=== PATIENT | female | born 1960 | race African-American/Black ===

== ENCOUNTER 2020-04-29 13:40 | Observation (INO) | payer OTHER, SELFPAY ==
[2020-04-29 16:02] LABS: Absolute Lymphocytes (CBC) 2.3 K/uL (0.7-4.9); Basophils % 0.8 % (0-1.3); Hematocrit 37.5 % (36.0-45.0); Lymphocytes % 34.1 % (15.3-44.8); MPV 7.8 fL (7.6-11.3); RBC Red Blood Cell Count 4.45 M/uL (3.86-4.86)
[2020-04-29 16:09] LABS: Protime INR 1.15
--- NOTE | 2020-04-29 16:23 | RAD REPORT ---
EXAM DESCRIPTION: USExtrem Venous W Compress Bil04/29/2020 2:41 pm CLINICAL HISTORY: Leg swelling COMPARISON: none FINDINGS: The common femoral, superficial femoral, popliteal and posterior tibial veins bilaterally are compressible and demonstrate augmentation. Doppler demonstrates good flow. IMPRESSION: No evidence of deep venous thrombosis involving either lower extremity. 4 centimeter left Avila's cyst
[2020-04-29 16:35] LABS: ALT/SGPT 24 U/L (12-78); AST/SGOT 22 U/L (15-37); Albumin 3.5 g/dL (3.4-5.0); Alkaline Phosphatase 110 U/L (45-117); BUN Blood Urea Nitrogen 18 mg/dL (7-18); Bicarbonate 27 mmol/L (21-32); Bilirubin Direct < 0.1 mg/dL (0-0.2); Bilirubin Total 0.3 mg/dL (0.2-1.0); Glucose Level 93 mg/dL (74-106); Magnesium 2.3 mg/dL (1.8-2.4); NT PRO-BNP 49 pg/mL (<125); Potassium 3.5 mmol/L (3.5-5.1); Protein, Total 8.1 g/dL (6.4-8.2); Sodium Level 142 mmol/L (136-145); Troponin (Emerg Dept Use Only) < 0.02 ng/mL (0.0-0.045)
[2020-04-29] MEDS ORDERED: FUROSEMIDE 20 MG/ 2ML VIAL ONE (17:23)
--- NOTE | 2020-04-29 17:41 | RAD REPORT ---
EXAM DESCRIPTION: Laisha Single View04/29/2020 2:50 pm CLINICAL HISTORY: Shortness of breath COMPARISON: none FINDINGS: The lungs appear clear of acute infiltrate. The heart is normal size. 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
[2020-04-29] MEDS ORDERED: ONDANSETRON 4 MG/2 ML VIAL ONE ×2 (17:55→20:04)
--- NOTE | 2020-04-29 18:03 | RAD REPORT ---
EXAM DESCRIPTION: CT - Chest For Pe Angio - 04/29/2020 5:49 pm CLINICAL HISTORY: sob COMPARISON: None. TECHNIQUE: Dynamically enhanced axial 3 mm thick images of the chest were obtained during administra tion of <100> mL Isovue 370 IV contrast. Coronal and oblique reconstruction images were generated and reviewed. Exam utilizes a protocol for optimal evaluation of pulmonary arterial tree. Maximum intensity projections 3D imaging was utilized All CT scans are performed using dose optimization technique as appropriate and may include automated exposure control or mA/KV adjustment according to patient size. FINDINGS: A pulmonary embolus is not seen. A thoracic aortic aneurysm is not noted. A pleural effusion is not seen. A pericardial effusion is not seen. A lung consolidation is not present. right mastectomy IMPRESSION: Negative for a pulmonary embolism.
[2020-04-29 18:34] LABS: Urine Bacteria 20-50 /HPF (<20); Urine RBC <5 /HPF (NONE SEEN)
[2020-04-29 18:35] LABS: Urine Blood NEGATIVE (NEG); Urine Glucose NEGATIVE (NEG); Urine Protein NEGATIVE (NEG); Urine Specific Gravity 1.025 (1.005-1.030)
--- NOTE | 2020-04-29 18:45 | EDPHYS ---
Physician Documentation [facility] Name: Dorota Mota Age: 60 yrs Sex: Female : 1960 Arrival Date: 04/29/2020 Time: 13:41 Bed 8 Private MD: ED Physician Vaughn Ziegler HPI: 04/29 13:50 This 60 yrs old Black Female presents to ER via EMS with complaints of Shortness Of cp Breath, Dizziness, General Weakness. 13:50 The patient has shortness of breath at rest. cp 13:50 Onset: The symptoms/episode began/occurred 2 day(s) ago. Duration: The symptoms are cp continuous, and are steadily getting worse. Associated signs and symptoms: Pertinent positives: chest pain, dizziness, general weakness, Pertinent negatives: productive cough, diaphoresis, fever, visual changes, vomiting. Severity of symptoms: in the emergency department the symptoms are unchanged despite home interventions. Historical: - Allergies: 13:53 Amoxicillin; ph - PMHx: 13:53 Cancer, Bone; Cancer, Breast; Hypertension; Myocardial infarction; ph - PSHx: 13:53 Mastectomy, Right; ph - Immunization history:: Adult Immunizations unknown. - Social history:: Smoking status: Patient denies any tobacco usage or history of. ROS: 13:55 Constitutional: Negative for body aches, chills, fever, poor PO intake. cp 13:55 Eyes: Negative for injury, pain, redness, and discharge. cp 13:55 ENT: Negative for ear pain, sore throat, difficulty swallowing, difficulty handling secretions. 13:55 Cardiovascular: Positive for edema, Negative for chest pain, palpitations. 13:55 Respiratory: Positive for shortness of breath, Negative for cough, wheezing. 13:55 Abdomen/GI: Negative for abdominal pain, nausea, vomiting, and diarrhea. 13:55 Back: Negative for pain at rest, pain with movement, radiated pain. 13:55 : Negative for urinary symptoms. 13:55 Neuro: Positive for dizziness, Negative for altered mental status, headache, syncope, weakness. 13:55 All other systems are negative. Exam: 14:00 Constitutional: The patient appears in no acute distress, alert, awake, cp non-diaphoretic, non-toxic, well developed, well nourished. 14:00 Head/Face: Normocephalic, atraumatic. cp 14:00 Eyes: Periorbital structures: appear normal, Conjunctiva: normal, no exudate, no injection, Sclera: no appreciated abnormality, Lids and lashes: appear normal, bilaterally. 14:00 ENT: External ear(s): are unremarkable, Nose: is normal, Mouth: Lips: moist, Oral mucosa: moist, Posterior pharynx: Airway: no evidence of obstruction, patent. 14:00 Neck: ROM/movement: is normal, is supple, without pain, no range of motions limitations. 14:00 Chest/axilla: Inspection: normal, Palpation: is normal, no crepitus, no tenderness. 14:00 Cardiovascular: Rate: normal, Rhythm: regular, Edema: ankle edema, that is mild, JVD: is not appreciated. 14:00 Respiratory: the patient does not display signs of respiratory distress, Respirations: normal, no use of accessory muscles, no retractions, labored breathing, is not present, Breath sounds: are clear throughout, no decreased breath sounds, no stridor, no wheezing. 14:00 Abdomen/GI: Exam negative for discomfort, distension, guarding, Inspection: abdomen appears normal. 14:00 Back: pain, is absent, ROM is normal. 14:00 Skin: cellulitis, is not appreciated, no rash present. 14:00 Neuro: Orientation: to person, place \T\ time. Mentation: is normal, Motor: moves all fours, strength is normal. 16:08 ECG was reviewed by the Attending Physician. cp Vital Signs: 13:46 BP 122 / 78; Pulse 68; Resp 18; Temp 98.2; Pulse Ox 99% on R/A; Weight 73.03 kg; Height ph 5 ft. 4 in. (162.56 cm); 16:13 BP 126 / 74; Pulse 61; Resp 18; Pulse Ox 100% on R/A; ph 17:00 BP 125 / 80; Pulse 64; Resp 18; Pulse Ox 100% on R/A; ph 18:27 BP 121 / 62; Pulse 61; Resp 16; Pulse Ox 100% on R/A; ph 19:00 BP 110 / 69; Pulse 62; Resp 18; Pulse Ox 100% ; ea 20:01 BP 133 / 77; Pulse 63; Resp 18; Pulse Ox 100% on R/A; ea 21:25 BP 126 / 79; Pulse 60; Resp 18; Pulse Ox 97% on R/A; ea 23:11 BP 113 / 78; Pulse 63; Resp 17; Temp 98; Pulse Ox 98% ; ea 13:46 Body Mass Index 27.64 (73.03 kg, 162.56 cm) ph MDM: 13:47 Patient medically screened. 18:45 Data reviewed: vital signs, nurses notes, lab test result(s), EKG, radiologic studies, cp CT scan, plain films, ultrasound, and as a result, I will admit patient. 18:45 Differential diagnosis: Bronchitis CHF exacerbation, Myocardial Infarction pneumonia, cp Pneumothorax pulmonary edema, Pulmonary Embolism Unstable Angina. Test interpretation: by ED physician or midlevel provider: ECG, plain radiologic studies. Counseling: I had a detailed discussion with the patient and/or guardian regarding: the historical points, exam findings, and any diagnostic results supporting the discharge/admit diagnosis, lab results, radiology results, the need for further work-up and treatment in the hospital. Response to treatment: the patient's symptoms have mildly improved after treatment. 18:45 Physician consultation: Devin HOPPER was contacted at 18:30, regarding admission, cp to the telemetry unit. patient's condition. 04/29 13:47 Order name: Basic Metabolic Panel 04/29 13:47 Order name: CBC with Diff; Complete Time: 17:08 04/29 17:09 Interpretation: Normal except: MCH 26.9; MCHC 31.9; MN% 12.6. 04/29 13:47 Order name: LFT's; Complete Time: 17:08 04/29 17:09 Interpretation: Normal except: GLOB 4.6; A/G 0.8. 04/29 13:47 Order name: Magnesium; Complete Time: 17:09 04/29 13:47 Order name: NT PRO-BNP; Complete Time: 17:09 04/29 18:10 Interpretation: NT PRO-BNP 49; Reviewed. 04/29 13:47 Order name: PT-INR; Complete Time: 17:08 04/29 18:09 Interpretation: Abnormal: PT 13.2. 04/29 13:47 Order name: Troponin (emerg Dept Use Only); Complete Time: 17:09 04/29 13:47 Order name: XRAY Chest (1 view); Complete Time: 17:54 cp 04/29 13:48 Order name: Basic Metabolic Panel; Complete Time: 17:09 EDMS 04/29 17:09 Interpretation: Normal except: CL 108; GFR 67. cp 04/29 18:15 Order name: Urine Microscopic Only iw 04/29 18:16 Order name: Urine Microscopic Only; Complete Time: 19:15 EDMS 04/29 18:25 Order name: Urine Dipstick--Ancillary (enter results); Complete Time: 19:15 bd 04/29 18:35 Order name: Urine Culture EDMS 04/29 13:47 Order name: EKG; Complete Time: 13:48 cp 04/29 13:47 Order name: Cardiac monitoring; Complete Time: 16:14 cp 04/29 13:47 Order name: EKG - Nurse/Tech; Complete Time: 16:14 cp 04/29 13:47 Order name: IV Saline Lock; Complete Time: 16:14 cp 04/29 13:47 Order name: Labs collected and sent; Complete Time: 16:14 cp 04/29 13:47 Order name: O2 Per Protocol; Complete Time: 13:57 cp 04/29 13:47 Order name: O2 Sat Monitoring; Complete Time: 13:57 cp 04/29 13:47 Order name: US Extremity Venous W Compression Waldo; Complete Time: 17:09 cp 04/29 17:23 Interpretation: Report reviewed. cp 04/29 17:10 Order name: CT Chest For PE Angio; Complete Time: 18:09 cp EC:08 Rate is 55 beats/min. Rhythm is regular. NC interval is normal. QRS interval is normal. cp QT interval is normal. Interpreted by me. Reviewed by me. Administered Medications: 17:13 Drug: Lasix 20 mg Route: IVP; Site: Port-a-cath; ph 19:29 Follow up: Response: No adverse reaction ph 17:43 Drug: Zofran (Ondansetron) 4 mg Route: IVP; Site: Port-a-cath; ph 19:29 Follow up: Response: No adverse reaction ph 19:44 Drug: Rocephin - (cefTRIAXone) 1 grams Route: IVPB; Infused Over: 30 mins; Site: ea Port-a-cath; 21:25 Follow up: Response: No adverse reaction; IV Status: Completed infusion ea 19:44 Drug: Tylenol 1000 mg Route: PO; ea 21:25 Follow up: Response: No adverse reaction ea Disposition: 04/30 09:47 Co-signature as Attending Physician, Vaughn Ziegler MD I agree with the assessment and dick plan of care. Disposition: 04/29/20 18:44 Hospitalization ordered by Chet Best for Observation. Preliminary diagnosis are Chest pain, unspecified, Edema, unspecified, Dyspnea. - Bed requested for Telemetry/MedSurg (observation). - Status is Observation. ea - Condition is Stable. - Problem is new. - Symptoms have improved. Signatures: Dispatcher [employer] EDMS Deya Kerr RN Vaughn Hewitt MD MD cha Attema, Lee, REGROOVER-C [facility] Corinna Contreras, RN RN Vaughn Quick PA PA cp Antunez, Elena, RN RN ea Corrections: (The following items were deleted from the chart) 04/29 22:38 18:44 Hospitalization Ordered by Chet Best MD for Observation. Preliminary diagnosis is Chest pain, unspecified; Edema, unspecified; Dyspnea. Bed requested for Telemetry/MedSurg (observation). Status is Observation. Condition is Stable. Problem is new. Symptoms have improved. cp 23:17 22:38 04/29/2020 18:44 Hospitalization Ordered by Chet Best MD for Observation. ea Preliminary diagnosis is Chest pain, unspecified; Edema, unspecified; Dyspnea. Bed requested for Telemetry/MedSurg (observation). Status is Observation. Condition is Stable. Problem is new. Symptoms have improved. mw
--- NOTE | 2020-04-29 18:45 | ER ---
Nurse's Notes [facility] [place] Name: Dorota Mota Age: 60 yrs Sex: Female : 1960 Arrival Date: 04/29/2020 Time: 13:41 Bed 8 Private MD: Diagnosis: Chest pain, unspecified;Edema, unspecified;Dyspnea Presentation: 04/29 13:46 Chief complaint: EMS states: C/O SOB x 2 days, dizziness, and cyanotic fingers, VSS ph upon EMS arrival, BP 130s/70s, HR 68, room air Spo2 99%, pt also reports swelling to avila ankles and arms, hx of breast and bone cancer that is in remission. Coronavirus screen: fatigue, shortness of breath, Client presents with at least one sign or symptom that may indicate coronavirus-19. Standard/surgical mask placed on the client. Provider contacted for isolation considerations. Ebola Screen: No symptoms or risks identified at this time. Initial Sepsis Screen: Does the patient meet any 2 criteria? No. Patient's initial sepsis screen is negative. Does the patient have a suspected source of infection? No. Patient's initial sepsis screen is negative. Risk Assessment: Do you want to hurt yourself or someone else? Patient reports no desire to harm self or others. Onset of symptoms was April 29, 2020. 13:46 Method Of Arrival: EMS: [facility] ph 13:46 Acuity: ZAIN 3 ph Triage Assessment: 13:53 General: Appears in no apparent distress. comfortable, well groomed, Behavior is calm, ph cooperative, appropriate for age, Denies fever. Pain: Complains of pain in anterior aspect of right upper chest. Neuro: Level of Consciousness is awake, alert, obeys commands, Oriented to person, place, time, situation. Cardiovascular: Reports chest pain, lightheadedness, shortness of breath, Denies nausea, syncope, vomiting, Edema is 1+ to right forearm, right wrist, right hand, left ankle, left foot, left forearm, left wrist, left hand, right ankle and right foot Chest pain is located in right anterior chest wall. Respiratory: Reports shortness of breath Airway is patent Respiratory effort is even, unlabored, Respiratory pattern is regular, symmetrical. GI: No signs and/or symptoms were reported involving the gastrointestinal system. Patient currently denies abdominal pain, diarrhea, nausea, vomiting. Derm: Skin is intact, is healthy with good turgor, Skin is pink, warm \T\ dry. Musculoskeletal: Circulation, motion, and sensation intact. Range of motion: intact in all extremities. Historical: - Allergies: 13:53 Amoxicillin; ph - PMHx: 13:53 Cancer, Bone; Cancer, Breast; Hypertension; Myocardial infarction; ph - PSHx: 13:53 Mastectomy, Right; ph - Immunization history:: Adult Immunizations unknown. - Social history:: Smoking status: Patient denies any tobacco usage or history of. Screenin:55 Abuse screen: Denies threats or abuse. Denies injuries from another. Nutritional ph screening: No deficits noted. Tuberculosis screening: No symptoms or risk factors identified. Fall Risk None identified. Assessment: 13:55 Reassessment: attempted to draw lab, pt on phone at this time, unable to draw labs. [id number] 14:00 General: SEE TRIAGE ASSESSMENT. ph 14:11 Reassessment: Pt refusing COVID swab at this time. ph 15:00 Reassessment: Patient appears in no apparent distress at this time. Patient and/or ph family updated on plan of care and expected duration. Pain level reassessed. Patient is alert, oriented x 3, equal unlabored respirations, skin warm/dry/pink. 16:00 Reassessment: Patient appears in no apparent distress at this time. Patient and/or ph family updated on plan of care and expected duration. Pain level reassessed. Patient is alert, oriented x 3, equal unlabored respirations, skin warm/dry/pink. 17:00 Reassessment: Patient appears in no apparent distress at this time. Patient and/or ph family updated on plan of care and expected duration. Pain level reassessed. Patient is alert, oriented x 3, equal unlabored respirations, skin warm/dry/pink. Pt requesting nurse at bedside because finger tips are blue, pads of fingertips on both hands appear blue in color, cold to touch, however, Spo2 is maintained at 100% per pulse ox, no blue discoloration noted to lips, no difficulty breathing. 18:27 Reassessment: Patient appears in no apparent distress at this time. Patient and/or ph family updated on plan of care and expected duration. Pain level reassessed. Patient is alert, oriented x 3, equal unlabored respirations, skin warm/dry/pink. 19:00 Reassessment: Patient and/or family updated on plan of care and expected duration. Pain ea level reassessed. Patient is alert, oriented x 3, equal unlabored respirations, skin warm/dry/pink. 21:23 Reassessment: Patient and/or family updated on plan of care and expected duration. Pain ea level reassessed. Patient is alert, oriented x 3, equal unlabored respirations, skin warm/dry/pink. 22:15 Reassessment: Patient and/or family updated on plan of care and expected duration. Pain ea level reassessed. Patient is alert, oriented x 3, equal unlabored respirations, skin warm/dry/pink. Awaiting on covid results. 23:12 Reassessment: Patient and/or family updated on plan of care and expected duration. Pain ea level reassessed. Patient is alert, oriented x 3, equal unlabored respirations, skin warm/dry/pink. 23:16 Reassessment: Patient and/or family updated on plan of care and expected duration. Pain ea level reassessed. Patient is alert, oriented x 3, equal unlabored respirations, skin warm/dry/pink. Report called to receiving nurse, pt admitted to second floor. Pt left ED via stretcher per tech, tolerating well. Vital Signs: 13:46 BP 122 / 78; Pulse 68; Resp 18; Temp 98.2; Pulse Ox 99% on R/A; Weight 73.03 kg; Height ph 5 ft. 4 in. (162.56 cm); 16:13 BP 126 / 74; Pulse 61; Resp 18; Pulse Ox 100% on R/A; ph 17:00 BP 125 / 80; Pulse 64; Resp 18; Pulse Ox 100% on R/A; ph 18:27 BP 121 / 62; Pulse 61; Resp 16; Pulse Ox 100% on R/A; ph 19:00 BP 110 / 69; Pulse 62; Resp 18; Pulse Ox 100% ; ea 20:01 BP 133 / 77; Pulse 63; Resp 18; Pulse Ox 100% on R/A; ea 21:25 BP 126 / 79; Pulse 60; Resp 18; Pulse Ox 97% on R/A; ea 23:11 BP 113 / 78; Pulse 63; Resp 17; Temp 98; Pulse Ox 98% ; ea 13:46 Body Mass Index 27.64 (73.03 kg, 162.56 cm) ph ED Course: 13:41 Patient arrived in ED. am2 13:45 Vaughn Quick PA is PHCP. cp 13:45 Vaughn Ziegler MD is Attending Physician. cp 13:46 Corinna Contreras, RN is Primary Nurse. ph 13:52 Triage completed. ph 13:55 Arm band placed on Patient placed in an exam room, on a stretcher, on scrubber system attendant, ph on pulse oximetry. 13:55 Patient has correct armband on for positive identification. Placed in gown. Bed in low ph position. Call light in reach. linen keeper on. Pulse ox on. NIBP on. Door closed. Noise minimized. Warm blanket given. 14:48 US Extremity Venous W Compression Avila In Process Unspecified. EDMS 14:49 XRAY Chest (1 view) In Process Unspecified. EDMS 15:35 Initial lab(s) drawn, by me, sent to lab. Accessed Port-a-Cath. using accessed w/ # 20 ph Andres needle, ,sterile technique, Clean \T\ dry. Dressing intact. Good blood return. Flushes easily. Flushed port-a-cath w/ 10 ml NS. 17:49 CT Chest For PE Angio In Process Unspecified. EDMS 18:43 Chet Best MD is Hospitalizing Provider. cp 20:36 Primary Nurse role handed off by Corinna Contreras, RN sg 21:23 Romina Mao, KIRA is Primary Nurse. ea 21:23 No provider procedures requiring assistance completed. Patient admitted, IV remains in ea place. Administered Medications: 17:13 Drug: Lasix 20 mg Route: IVP; Site: Port-a-cath; ph 19:29 Follow up: Response: No adverse reaction ph 17:43 Drug: Zofran (Ondansetron) 4 mg Route: IVP; Site: Port-a-cath; ph 19:29 Follow up: Response: No adverse reaction ph 19:44 Drug: Rocephin - (cefTRIAXone) 1 grams Route: IVPB; Infused Over: 30 mins; Site: ea Port-a-cath; 21:25 Follow up: Response: No adverse reaction; IV Status: Completed infusion ea 19:44 Drug: Tylenol 1000 mg Route: PO; ea 21:25 Follow up: Response: No adverse reaction ea Output: 18:27 Urine: 600ml (Voided); Total: 600ml. ph Outcome: 18:44 Decision to Hospitalize by Provider. cp 21:23 Instructed on the need for admit. ea 23:16 Admitted to Med/surg room 217, with chart, Report called to Receiving nurse ea 23:16 Condition: stable 23:17 Patient left the ED. ea Signatures: Dispatcher [employer] EDRen Covington, RN RN Corinna Avila RN RN ph Vaughn Qiuck PA PA cp Leal, Jahala RN RN [id number] Abril Larry Elena RN RN bandar
[2020-04-29] MEDS ORDERED: ACETAMINOPHEN 500 MG TAB ONE (19:40)
[2020-04-29] MEDS ORDERED: CEFTRIAXONE/SWI 1gm 1 GM/10 ML SYR ONE (19:41)
--- NOTE | 2020-04-29 20:35 | P.HP ---
Certification for Inpatient Patient admitted to: Observation With expected LOS: <2 Midnights Patient will require the following post-hospital care: None Practitioner: I am a practitioner with admitting privileges, knowledge of patient current condition, hospital course, and medical plan of care. Services: Services provided to patient in accordance with Admission requirements found in Title 42 Section 412.3 of the Code of Federal Regulations <Devin Underwood - Last Filed: 04/29/20 20:31> Patient History Date of Service: 04/29/20 Primary Care Provider: JACE Reason for admission: Chest pain History of Present Illness: 60-year-old female with history of breast cancer currently in remission, hypertension, previous myocardial infarction presents emergency department for chest pain. Patient reports that she has had ongoing intermittent 18 me chest pain for the last approximately 2 days with associated shortness of breath and dizziness. Patient reports pain not related to any exertion or relieved by rest. Some mild tenderness to palpation of chest wall but states that pain elicited with palpation is different than the pain that she experiences intermittently. Workup in the emergency department unremarkable, EKG without acute changes, chest x-ray/CT PE protocol negative for any acute findings, patient complaining of swelling to all extremities, renal function within normal limits CT chest with contrast negative for any acute findings, ultrasound bilateral lower extremities significant only for small left Avila's cyst. Vital signs stable, ED provider wishes to admit for chest pain rule out. - Past Medical/Surgical History -: Breast cancer with metastasis currently in remission -: Hypertension -: Hysterectomy -: Right-sided mastectomy Psychosocial/ Personal History: Patient currently lives with her family - Family History Mother -: Heart disease, Cancer Sister -: Cancer - Social History Smoking Status: Never smoker Alcohol use: No CD- Drugs: No Caffeine use: Yes Place of Residence: Home <Dvein Underwood - Last Filed: 04/29/20 20:31> Date of Service: 04/30/20 <Chet Best - Last Filed: 04/30/20 17:34> Review of Systems 10-point ROS is otherwise unremarkable Cardiovascular: Chest Pain, Light Headedness, As per HPI <Devin Underwood - Last Filed: 04/29/20 20:31> Physical Examination - Physical Exam General: Alert, In no apparent distress HEENT: Atraumatic, PERRLA, Mucous membr. moist/pink Neck: Supple, 2+ carotid pulse no bruit, No LAD Respiratory: Clear to auscultation bilaterally, Normal air movement Cardiovascular: Regular rate/rhythm, Normal S1 S2 Capillary refill: <2 Seconds Gastrointestinal: Normal bowel sounds, No tenderness Musculoskeletal: No tenderness Integumentary: No rashes Neurological: Normal speech, Normal strength at 5/5 x4 extr, Normal tone, Normal affect - Studies Laboratory Data (last 24 hrs) 04/29/20 15:45: PT 13.2 H, INR 1.15 04/29/20 15:45: WBC 6.70, Hgb 12.0, Hct 37.5, Plt Count 253 04/29/20 15:45: Sodium 142, Potassium 3.5, BUN 18, Creatinine 1.02, Glucose 93, Magnesium 2.3, Total Bilirubin 0.3, AST 22, ALT 24, Alkaline Phosphatase 110 <Devin Underwood - Last Filed: 04/29/20 20:31> Assessment and Plan - Plan Assessment Chest pain rule out ACS Hypertension Urinary tract infection Plan Chest pain rule out ACS: Trend troponins, monitor on telemetry. Cardiology consult in place. Lipid/thyroid panel with morning labs. Daily aspirin, obtain and verify home medications, blood pressure on the low side for now will hold off on beta oscar therapy. Appreciate further input from cardiology. DVT prophylaxis Lovenox 40 mg subcutaneous once daily. Hypertension: Obtain and continue home medications, blood pressure within normal limits this time. Urinary tract infection: Nitrite positive urine with bacteria on the microscopic evaluation, continue IV Rocephin at this time. Discharge Plan: Home Plan to discharge in: 24 Hours - Advance Directives Does patient have a Living Will: No Does patient have a Durable POA for Healthcare: No - Code Status/Comfort Care Code Status Assessed: Yes (Full code) Critical Care: No Time Spent Managing Pts Care (In Minutes): 55 <Devin Underwood - Last Filed: 04/29/20 20:31> - Plan Plan of care reviewed as noted above by Devin Underwood. Agree with plan. ACS r/o, trend troponin. Cardiology consulted given h/o CAD <Chet Best - Last Filed: 04/30/20 17:34>
[2020-04-30] MEDS ORDERED: ONDANSETRON 4 MG/2 ML VIAL IV PRN (00:22)
[2020-04-30] MEDS ORDERED: ACETAMINOPHEN 500 MG TAB PO PRN (00:22)
[2020-04-30 00:54] VITALS: BMI 26.1
[2020-04-30 03:26] VITALS: O2SAT 98
[2020-04-30 05:17] LABS: Absolute Lymphocytes (CBC) 1.7 K/uL (0.7-4.9); Basophils % 0.6 % (0-1.3); Hematocrit 35.2 % (36.0-45.0); Lymphocytes % 35.2 % (15.3-44.8); MPV 7.8 fL (7.6-11.3); RBC Red Blood Cell Count 4.25 M/uL (3.86-4.86)
[2020-04-30 05:46] LABS: Albumin 3.4 g/dL (3.4-5.0); Bilirubin Total 0.4 mg/dL (0.2-1.0); Magnesium 2.4 mg/dL (1.8-2.4); Potassium 3.3 mmol/L (3.5-5.1); Protein, Total 7.6 g/dL (6.4-8.2); Thyroid Stimulating Hormone 2.22 uIU/mL (0.360-3.740)
[2020-04-30] MEDS ORDERED: INFLUENZA VACCINE (for 3y+) 0.5 ML DOSE IMVAC ONE (09:00)
[2020-04-30] MEDS ORDERED: CEFTRIAXONE/SWI 1gm 1 GM/10 ML SYR IV SCH (09:00)
[2020-04-30] MEDS ORDERED: ASPIRIN EC 81 MG TAB PO SCH (09:00)
[2020-04-30] MEDS ORDERED: ENOXAPARIN 40 MG/0.4 ML SQ SCH (09:00)
[2020-04-30] MEDS ORDERED: CEFTRIAXONE 1 GM/NS 50 ML 1 GM/50 ML BAG IV SCH (09:00)
[2020-04-30] MEDS ORDERED: POTASSIUM CL SA 10 MEQ TAB PO ONE (09:00)
[2020-04-30 10:51] VITALS: BP 125/89; TEMP 97.9
[2020-04-30 10:55] LABS: White Blood Cell Scan OK (OK)
[2020-04-30 10:56] LABS: Blood Morphology Comment NOT SEEN (NOT SEEN); Platelet Estimate ADEQ
[2020-04-30] MEDS ORDERED: HEPARIN 500 UNIT/5 ML SYR IV PRN (12:32)
--- NOTE | 2020-04-30 17:40 | P.DS ---
Admission Date: 04/29/20 Discharge Date: 04/30/20 Primary Care Provider: JACE Disposition: ROUTINE DISCHARGE Discharge Condition: GOOD Reason for Admission: Chest pain Consultations: Cardiology - Dr. Llanos Procedures: CXR (04/29): No acute abnormalities displayed CTA chest (04/29): Negative for a pulmonary embolism. Venous U/S (04/29): No evidence of deep venous thrombosis involving either lower extremity. 4 centimeter left Avila's cyst Problem List: Chest pain Urinary tract infection Hypertension Brief History of Present Illness: 60-year-old female with history of breast cancer currently in remission, hypertension, previous myocardial infarction presents emergency department for chest pain. Patient reports that she has had ongoing intermittent 18 me chest pain for the last approximately 2 days with associated shortness of breath and dizziness. Patient reports pain not related to any exertion or relieved by rest. Some mild tenderness to palpation of chest wall but states that pain elicited with palpation is different than the pain that she experiences intermittently. Workup in the emergency department unremarkable, EKG without acute changes, chest x-ray/CT PE protocol negative for any acute findings, patient complaining of swelling to all extremities, renal function within normal limits CT chest with contrast negative for any acute findings, ultrasound bilateral lower extremities significant only for small left Avila's cyst. Vital signs stable, ED provider wishes to admit for chest pain rule out. Hospital Course: Chest pain improved. Troponin remained negative x 3. Cardiology was consulted and recommended no further intervention / workup at this time. Patient was feeling better and was discharged home. She did have some chest tenderness to palpation, possibly costochondritis. She reported some urine color and smell changes recently. A UA was suggestive of UTI. She received rocephin without issue and was discharged on Vantin. Vital Signs/Physical Exam: Physical Exam General: Alert, In no apparent distress HEENT: Atraumatic, PERRLA, Mucous membr. moist/pink Neck: Supple, 2+ carotid pulse no bruit, No LAD Respiratory: Clear to auscultation bilaterally, Normal air movement Cardiovascular: Regular rate/rhythm, Normal S1 S2 Capillary refill: <2 Seconds Gastrointestinal: Normal bowel sounds, No tenderness Musculoskeletal: mild tenderness to palpation along sternum Integumentary: No rashes Neurological: Normal speech, Normal strength at 5/5 x4 extr, Normal tone, Normal affect Temp Pulse Resp BP Pulse Ox 97.9 F 79 18 125/89 25 L 04/30/20 08:00 04/30/20 08:00 04/30/20 08:00 04/30/20 08:00 04/30/20 08:00 Laboratory Data at Discharge: WBC 4.90 K/uL (4.3-10.9) D 04/30/20 05:05 Hgb 11.6 g/dL (12.0-15.0) L 04/30/20 05:05 Hct 35.2 % (36.0-45.0) L 04/30/20 05:05 Plt Count 239 K/uL (152-406) 04/30/20 05:05 PT 13.2 SECONDS (9.5-12.5) H 04/29/20 15:45 INR 1.15 04/29/20 15:45 Sodium Cancelled 04/30/20 Unknown Potassium Cancelled 04/30/20 Unknown BUN Cancelled 04/30/20 Unknown Creatinine Cancelled 04/30/20 Unknown Glucose Cancelled 04/30/20 Unknown Magnesium 2.4 mg/dL (1.8-2.4) 04/30/20 05:05 Total Bilirubin 0.4 mg/dL (0.2-1.0) 04/30/20 05:05 AST 18 U/L (15-37) 04/30/20 05:05 ALT 20 U/L (12-78) 04/30/20 05:05 Alkaline Phosphatase 98 U/L (45-117) 04/30/20 05:05 Troponin I < 0.02 ng/mL (0.0-0.045) 04/30/20 05:05 Triglycerides 76 mg/dL (<150) 04/30/20 05:05 Cholesterol 173 mg/dL (<200) 04/30/20 05:05 HDL Cholesterol 55 mg/dL (40-60) 04/30/20 05:05 Cholesterol/HDL Ratio 3.15 04/30/20 05:05 Home Medications: RX: Cefpodoxime Proxetil 100 mg PO BID 7 Days #14 tablet 04/30/20 New Medications: RX: Cefpodoxime Proxetil 100 mg PO BID 7 Days #14 tablet Diet: AHA Activity: Ad terrence Followup: OOT,OOT [Primary Care Provider] - Time spent managing pt's care (in minutes): 35
--- NOTE | 2020-05-01 04:37 | EKG ---
Test Date: 2020-04-29 Test Time: 15:00:01 Aircraft Mechanic: DAY MEASUREMENT RESULTS: Intervals: Rate: 55 WI: 150 QRSD: 92 QT: 446 QTc: 426 Moyers: P: 64 WI: 150 QRS: -13 T: 49 INTERPRETIVE STATEMENTS: Sinus bradycardia Possible Left atrial enlargement Borderline ECG No previous ECG available for comparison Electronically Signed On 05-01-20 04:32:44 CDT by Franc Llanos
--- NOTE | 2020-05-07 03:02 | CON ---
Date of Consultation: 04/30/2020 Reason For Consultation: Shortness of breath and atypical chest pain. History Of Present Illness: Ms. Mota is a 60-year-old black woman with history of bone cancer, steph st cancer, hypertension, coronary artery disease. She is status post right mastectomy. Came in with shortness of breath at rest, atypical chest pain, sharp, stabbing with some dizziness and generalize d weakness. No cough. No diaphoresis. No fever. No vomiting. Denied PND, orthopnea, pedal edema, palpitation, or syncope. Past Medical History: As stated above. Allergies: TO AMOXICILLIN. Review of Systems: Negative. Social History: Negative. Family History: Noncontributory. Physical Examination: Vital Signs: Stable. Afebrile. HEENT: Negative. Neck: Supple without any lymphadenopathy, JVD, thyromegaly or bruit. Chest: Clear to auscultation and percussion. Cardiac: Exam revealed a regular rhythm and rate. No murmurs, gallops, or rubs. Abdomen: Benign. Extremities: Revealed no clubbing, cyanosis, or edema. Diagnostic Data: Fairly unremarkable. Her troponin was negative. EKG was nonspecific. Chest x-ray was negative. Impression And Plan: Atypical chest pain with shortness of breath. The patient has already had an e xtremity venous study that showed no evidence of deep venous thrombosis. She had a CT of her chest, which was negative for pulmonary embolus. Her chest x-ray was negative. EKG just showed sinus yasmeen cardia. Troponin has been negative. I think Ms. Mota's symptoms are very atypical for chest pain. I am comfortable with her going home considering all the negative testing was done. She can certain ly be set up for an outpatient stress test and an echocardiogram down the road. JERZY/ANDRYL Voice ID: [id number] Report ID: [id number]
== END 2020-04-30 13:45 | disposition home or self-care (01) ==
LOC: ER 13:40 → ERHOLD 19:50 → 2ND 23:57
PROVIDERS: ADMIT Hospitalist; ATTEND Hospitalist
DX: R07.9 Chest pain, unspecified (principal); N39.0 Urinary tract infection, site not specified; I10 Essential (primary) hypertension; M71.22 Synovial cyst of popliteal space [Baker], left knee; Z85.3 Personal history of malignant neoplasm of breast; I25.2 Old myocardial infarction; Z20.822 Contact with and (suspected) exposure to COVID-19
CPT/HCPCS: 96365; 93005; 87088; 85025 ×2; 87086; 80048; 36415; 83735 ×2; 85610; 80061; 80076; 84443; 87077; 87186; 84484 ×3; 84439; 80053; 83880; 71275; 71045; 93970; 96375; 99285; 96366; U0003; Q9967; J1940; J1650; J1642; J0696 ×2; J2405 ×3; 81003; 81015; G0378; Q2035